=== PATIENT | male | born 1980 | race Caucasian/White ===

== ENCOUNTER 2018-10-30 21:33 | Emergency (ER) | payer BC ==
[~2018-10-30] VITALS: Ht 175.3 cm; Wt 100.0 kg
[~2018-10-30 21:33] MED LIST: HYDR-4383 PO; METH500T PO
[2018-10-30 22:13] LABS: BASOPHILS # (AUTO) 0.1 X10'3 (0-0.2); EOSINOPHILS # (AUTO) 0.2 X10'3 (0-0.9); EOSINOPHILS % (AUTO) 2.9 % (0-6); HEMATOCRIT 44.7 % (42.0-52.0); HEMOGLOBIN 15.7 g/dl (14.0-17.9); LYMPHOCYTES # (AUTO) 2.6 X10'3 (1.1-4.8); MEAN CORPUSCULAR HEMOGLOBIN 30.1 PG (27.0-31.0); MEAN CORPUSCULAR HGB CONC 35.1 g/dL (33.0-36.5); MEAN CORPUSCULAR VOLUME 85.7 FL (78-98); MEAN PLATELET VOLUME 7.3 FL (7.4-10.4); MONOCYTES # (AUTO) 0.5 X10'3 (0-0.9); MONOCYTES % (AUTO) 6.4 % (2-12); NEUTROPHILS # (AUTO) 3.9 X10'3 (1.8-7.7); NEUTROPHILS % (AUTO) 53.7 % (42-75); PLATELET COUNT 313 X10'3 (140-440); RED BLOOD COUNT 5.21 X10'6 (4.70-6.10); RED CELL DISTRIBUTION WIDTH 13.6 % (11.5-14.5); WHITE BLOOD COUNT 7.3 X10'3 (4.5-11.0)
[2018-10-30 22:18] LABS: TOTAL CARBON DIOXIDE 29.4 MMOL/L (24-32)
[2018-10-30 22:40] VITALS: BP 123/76
[2018-10-30 22:50] LABS: CHOLESTEROL 171 MG/DL (0-200); HDL CHOLESTEROL 19 MG/DL (35-60); LDL CHOLESTEROL 96 MG/DL (50-100); TRIGLYCERIDES 889 MG/DL (20-135)
[2018-10-30 22:57] LABS: ALANINE AMINOTRANSFERASE 81 U/L (12-78); ALBUMIN 4.2 G/DL (3.4-5.0); ALBUMIN/GLOBULIN RATIO 1.3 (1.1-1.5); ALKALINE PHOSPHATASE 46 IU/L (46-116); ANION GAP 8 (8-16); ASPARTATE AMINO TRANSFERASE 33 U/L (10-37); BILIRUBIN,TOTAL 0.2 MG/DL (0.1-1.0); BLOOD UREA NITROGEN 30 MG/DL (7-18); BUN/CREATININE RATIO 26.5 (5.4-32.0); CALCIUM 9.2 MG/DL (8.5-10.1); CHLORIDE 104 MMOL/L (99-107); CREATININE 1.13 MG/DL (0.60-1.10); GLUCOSE 101 MG/DL (70-104); POTASSIUM 3.9 MMOL/L (3.5-5.1); SODIUM 141 MMOL/L (135-145); TOTAL PROTEIN 7.5 G/DL (6.4-8.2); eGFR 72 ML/MIN
== END 2018-10-30 23:27 | disposition home or self-care (01) ==
LOC: ER 21:34
DX: R42 Dizziness and giddiness (principal); R00.2 Palpitations; I10 Essential (primary) hypertension; J45.909 Unspecified asthma, uncomplicated
CPT/HCPCS: 36415; 71045; 80053; 80061; 84439; 84443; 84484; 85025; 93005; 99284

== ENCOUNTER 2018-12-21 06:30 | Emergency (ER) | payer OTHER ==
[~2018-12-21] VITALS: Ht 175.3 cm; Wt 105.0 kg
[2018-12-21 06:43] VITALS: BP 138/86
[2018-12-21] MEDS ORDERED: HYDROcodone/acetaminophen 5mg/325mg tablet PO ONE (07:15)
[2018-12-21] MEDS ORDERED: diazepam 5mg tablet PO ONE (07:15)
[2018-12-21] MEDS ORDERED: ketorolac trometh inj. 60 MG/2 ML VIAL IM ONE (07:15)
[2018-12-21] MEDS ORDERED: METH500T PO (07:21)
[2018-12-21] MEDS ORDERED: IBUP-1984 PO (07:21)
[2018-12-21] MEDS ORDERED: HYDR-4384 PO (07:21)
== END 2018-12-21 07:31 | disposition home or self-care (01) ==
LOC: ER 06:31
DX: M54.5 Low back pain (principal); I10 Essential (primary) hypertension; J45.909 Unspecified asthma, uncomplicated
CPT/HCPCS: 96372; 99283; J1885

== ENCOUNTER 2019-03-11 16:45 | Emergency (ER) | payer OTHER ==
[~2019-03-11] VITALS: Ht 175.3 cm; Wt 106.0 kg
[2019-03-11 17:23] VITALS: BP 127/89
[2019-03-11] MEDS ORDERED: CYCL-1 PO (17:47)
== END 2019-03-11 18:08 | disposition home or self-care (01) ==
LOC: ER 16:46
DX: M54.2 Cervicalgia (principal); M54.5 Low back pain; M62.838 Other muscle spasm; I10 Essential (primary) hypertension; J45.909 Unspecified asthma, uncomplicated; Z79.899 Other long term (current) drug therapy; V29.49XA Motorcycle driver injured in collision with other motor vehicles in traffic accident, initial encounter; Y93.I9 Activity, other involving external motion; Y92.488 Other paved roadways as the place of occurrence of the external cause; Y99.8 Other external cause status
CPT/HCPCS: 99283

== ENCOUNTER 2019-07-26 13:38 | Emergency (ER) | payer OTHER ==
[~2019-07-26] VITALS: Ht 175.3 cm; Wt 110.0 kg
[~2019-07-26 13:38] MED LIST changes: +CYCL-1 PO
[2019-07-26 14:06] VITALS: BP 148/92
[2019-07-26] MEDS ORDERED: ipratropium/albuterol 3ml nebule NEB ONE (14:55)
[2019-07-26] MEDS ORDERED: PRED20TA PO (15:08)
[2019-07-26] MEDS ORDERED: ALB0.5UD NEB (15:08)
[2019-07-26] MEDS ORDERED: predniSONE 20 mg tablet PO ONE (15:10)
== END 2019-07-26 16:18 | disposition home or self-care (01) ==
LOC: ER 13:38
DX: J45.901 Unspecified asthma with (acute) exacerbation (principal); I10 Essential (primary) hypertension; Z79.899 Other long term (current) drug therapy
CPT/HCPCS: 87502; 87503; 93005; 94640; 99284; J7512; 94760